=== PATIENT | female | born 1995 | race African-American/Black ===

== ENCOUNTER 2016-08-08 13:21 | Emergency (ER) | payer MEDICAID ==
[2016-08-08 13:29] VITALS: TEMP 98.1
[2016-08-08 14:42] LABS: % IMMATURE GRANULYOCYTES 0.3 % (0.0-1.1); ABSOLUTE IMMATURE GRANULOCYTES 0.02 10^3/uL (0.00-0.10); ADD DIFF? NO; ADD MORPH? NO; ADD SCAN? NO; ATYPICAL LYMPHOCYTE FLAG 10 (0-99); FRAGMENT RBC FLAG 0 (0-99); HEMATOCRIT 40.5 % (38.0-47.0); HEMOGLOBIN 13.2 g/dL (12.6-16.3); LEFT SHIFT FLG 0 (0-99); LIPEMIA HEMOLYSIS FLAG 80 (0-99); MEAN CELL HEMOGLOBIN CONCENTR. 32.6 g/dL (32.4-36.7); MEAN CELL VOLUME 82.8 fL (81.5-99.8); MEAN PLATELET VOLUME 9.8 fL (8.7-11.7); PLATELET CLUMPS FLAG 0 (0-99); PLATELET COUNT 214 10^3/uL (150-400); RED BLOOD CELL COUNT 4.89 10^6/uL (4.18-5.33); RED CELL DISTRIBUTION WIDTH 13.7 % (11.5-15.2)
[2016-08-08 15:00] LABS: ANION GAP 13 mEq/L (8-16); CALCIUM 9.6 mg/dL (8.5-10.4); CARBON DIOXIDE 21 mEq/l (22-31); CHLORIDE 108 mEq/L (97-110); CREATININE 0.8 mg/dL (0.6-1.0); GLOMERULAR FILTRATION RATE > 60; GLUCOSE 97 mg/dL (70-100); POTASSIUM 3.9 mEq/L (3.5-5.2); SODIUM 142 mEq/L (134-144)
--- NOTE | 2016-08-08 15:50 | EDPHY ---
H & P Time Seen by Provider: 08/08/16 14:03 HPI/ROS: CHIEF COMPLAINT: Vaginal bleeding HISTORY OF PRESENT ILLNESS: This is a 21-year-old female complaining of increased vaginal bleeding since Saturday, large clots today with abdominal cramping. Patient states she has been on the Depo without complications with scant bleeding. Reports this bleeding is very unusual for her. Patient states she is sexually active with 1 partner. Denies any chest pain or shortness of breath no other complaints REVIEW OF SYSTEMS: Constitutional: No fever, no chills. Eyes: No visual changes. ENT: No sore throat. Respiratory: No shortness of breath Cardiac: No chest pain Gastrointestinal: as above Genitourinary: Vaginal bleeding with clots Musculoskeletal: No back pain Skin: No rash Neurological: No headache or dizziness Smoking Status: Never smoked Physical Exam: General Appearance: Alert, no distress. Eyes: Pupils equal and round no pallor or injection. ENT, Mouth: Mucous membranes moist. Respiratory: There are no retractions, lungs are clear to auscultation. Cardiovascular: Regular rate and rhythm. Gastrointestinal: Abdomen is soft with suprapubic tenderness on palpate, no masses, : Pelvic exam: The vulva was normal no lesions. The vagina positive for blood in the vault, with some clots noted. The cervix was closed active bleeding no purulent drainage. The uterus was normal size and nontender. The adnexa had no masses and no tenderness. The exam was performed with a valance cutter. Skin: Warm and dry, no rashes. Musculoskeletal: Neck is supple nontender. Extremities are symmetrical, full range of motion. Psychiatric: Patient is oriented X 3, there is no agitation. Constitutional: Initial Vital Signs Temperature (C) 36.7 C 08/08/16 13:26 Heart Rate 94 08/08/16 13:26 Respiratory Rate 17 08/08/16 13:26 Blood Pressure 144/93 H 08/08/16 13:26 O2 Sat (%) 97 08/08/16 13:26 O2 Delivery Mode Room Air Allergies/Adverse Reactions: No Known Allergies Allergy (Unverified 08/08/16 13:25) Home Medications: Medication Instructions Recorded Depo-Provera 08/08/16 Medical Decision Making - Diagnostics Imaging: Imaging Impressions Pelvic/Renal Ultrasound 08/08/16 15:21 Impression: 1. Thickened endometrial stripe with indistinct margins with the myometrium. This can be seen with adenomyosis. Also consider endometrial hyperplasia. 2. Normal-appearing right ovary. 3. Suboptimal visualization of the left ovary which appears grossly normal. Findings discussed with Vianney Moraes NP at 16:34 hour, 08/08/2016. ED Course/Re-evaluation: Discussed plan of care: CBC, HCG, pelvic exam, and pelvic ultrasound ordered 1530: Patient tolerated pelvic exam 1645: Discussed ultrasound results with patient. discharge home---> stable, discussed discharge instructions the patient Differential Diagnosis: differential diagnosis considered but not limited to ovarian cyst, ovarian torsion, and uterine mass - Data Points Laboratory Results: Laboratory Results 08/08/16 14:35 08/08/16 14:35 08/08/16 08/08/16 08/08/16 15:15 14:35 14:35 WBC RBC Hgb Hct MCV MCH MCHC RDW Plt Count MPV Neut % (Auto) Lymph % (Auto) [place] % (Auto) Eos % (Auto) Baso % (Auto) Nucleat RBC Rel Count Absolute Neuts (auto) Absolute Lymphs (auto) Absolute Monos (auto) Absolute Eos (auto) Absolute Basos (auto) Absolute Nucleated RBC Immature Gran % Immature Gran # Sodium 142 mEq/L mEq/L (134-144) Potassium 3.9 mEq/L mEq/L (3.5-5.2) Chloride 108 mEq/L mEq/L (97-110) Carbon Dioxide 21 mEq/l L mEq/l (22-31) Anion Gap 13 mEq/L mEq/L (8-16) BUN 8 mg/dL mg/dL (7-23) Creatinine 0.8 mg/dL mg/dL (0.6-1.0) Estimated GFR > 60 Glucose 97 mg/dL mg/dL (70-100) Calcium 9.6 mg/dL mg/dL (8.5-10.4) Beta HCG, Qual NEGATIVE Ana species DNA Pending Gardnerella DNA Probe Pending Trichomonas DNA Probe Pending 08/08/16 14:35 WBC 7.18 10^3/uL 10^3/uL (3.80-9.50) RBC 4.89 10^6/uL 10^6/uL (4.18-5.33) Hgb 13.2 g/dL g/dL (12.6-16.3) Hct 40.5 % % (38.0-47.0) MCV 82.8 fL fL (81.5-99.8) MCH 27.0 pg L pg (27.9-34.1) MCHC 32.6 g/dL g/dL (32.4-36.7) RDW 13.7 % % (11.5-15.2) Plt Count 214 10^3/uL 10^3/uL (150-400) MPV 9.8 fL fL (8.7-11.7) Neut % (Auto) 66.5 % % (39.3-74.2) Lymph % (Auto) 26.7 % % (15.0-45.0) [place] % (Auto) 5.4 % % (4.5-13.0) Eos % (Auto) 0.8 % % (0.6-7.6) Baso % (Auto) 0.3 % % (0.3-1.7) Nucleat RBC Rel Count 0.0 % % (0.0-0.2) Absolute Neuts (auto) 4.77 10^3/uL 10^3/uL (1.70-6.50) Absolute Lymphs (auto) 1.92 10^3/uL 10^3/uL (1.00-3.00) Absolute Monos (auto) 0.39 10^3/uL 10^3/uL (0.30-0.80) Absolute Eos (auto) 0.06 10^3/uL 10^3/uL (0.03-0.40) Absolute Basos (auto) 0.02 10^3/uL 10^3/uL (0.02-0.10) Absolute Nucleated RBC 0.00 10^3/uL 10^3/uL (0-0.01) Immature Gran % 0.3 % % (0.0-1.1) Immature Gran # 0.02 10^3/uL 10^3/uL (0.00-0.10) Sodium Potassium Chloride Carbon Dioxide Anion Gap BUN Creatinine Estimated GFR Glucose Calcium Beta HCG, Qual Ana species DNA Gardnerella DNA Probe Trichomonas DNA Probe Departure - Departure Disposition: Home, Routine, Self-Care Clinical Impression: Menorrhagia with irregular cycle Condition: Good Instructions: Menorrhagia (ED) Additional Instructions: 1. The follow-up with your primary care physician, no mass or ovarian cyst were seen on ultrasound ultrasound Impression: Thickened endometrial stripe with indistinct margins with the myometrium. This can be seen with adenomyosis. Also consider endometrial hyperplasia. Normal-appearing right ovary. Suboptimal visualization of the left ovary which appears grossly normal. 2. you can take Tylenol or ibuprofen for abdominal cramping 3. if any culture results are positive the hospital call you Referrals: NONE *PRIMARY CARE P,. [Primary Care Provider] - As per Instructions [facility],. [Clinic] - As per Instructions
[2016-08-08 16:55] VITALS: BP 140/87; PULSE 75; RESP 18; O2SAT 96
== END 2016-08-08 17:06 | disposition home or self-care (01) ==
DX: N92.0 Excessive and frequent menstruation with regular cycle (principal)

== ENCOUNTER 2016-08-13 20:12 | Emergency (ER) | payer MEDICAID ==
[2016-08-13 20:30] VITALS: RESP 16; TEMP 98.8; O2SAT 99
--- NOTE | 2016-08-13 20:42 | EDPHY ---
H & P Stated Complaint: seen weds for same, heavy vag bleeding, pt says has used 60 pads since weds - Medical/Surgical History Hx Asthma: No Hx Chronic Respiratory Disease: No Hx Diabetes: No Hx Cardiac Disease: No Hx Renal Disease: No Hx Cirrhosis: No Hx Alcoholism: No Hx HIV/AIDS: No Hx Splenectomy or Spleen Trauma: No Other PMH: back surgery - Social History Smoking Status: Never smoked Time Seen by Provider: 08/13/16 20:40 HPI/ROS: CHIEF COMPLAINT: Heavy vaginal bleeding HISTORY OF PRESENT ILLNESS: 21-year-old female seen emergency department 5 days ago for same complaint notes that she has increased her vaginal had usage, soaking a pad every 20 minutes, complaining of mild dizziness continued suprapubic discomfort. Otherwise no acute symptoms. Last Depo-Provera shot was 3 months ago. No prior history of similar. No urinary complaints. No back pain. No chest pain. PRIMARY CARE PROVIDER: [facility] REVIEW OF SYSTEMS: A ten point review of systems was performed and is negative with the exception of the items mentioned in the HPI PAST MEDICAL & SURGICAL HISTORY: No pertinent medical or surgical history SOCIAL HISTORY: [employer] Student PHYSICAL EXAM (Prior to examination, patient consented to physical exam, hands were washed and my usual and customary physical exam procedures followed) 1) GENERAL: Well-developed, well-nourished, alert and oriented. Appears to be in no acute distress. 2) HEAD: Normocephalic, atraumatic 3) HEENT: Pupils equal, round, reactive to light bilaterally. Sclera anicteric. 4) NECK: Full range of motion, no meningeal signs. 5) LUNGS: Clear auscultation bilaterally 6) HEART: Regular rate and rhythm, no murmur, no heave, no gallop. 7) ABDOMEN: No guarding, no rebound, no focal tenderness, negative McBurney's, negative Fink's, negative Rovsing's, negative peritoneal sign, 8) MUSCULOSKELETAL: No peripheral edema or discoloration. 9) BACK: No CVA tendernes. 10) SKIN: No rash, no petechiae. 11) PELVIC (with female nurse Vianney at bedside): Normal female external genitalia, no lesions visualized. Speculum examination reveals no active vaginal bleeding. Scant amount of old blood in the vaginal vault, DIFFERENTIAL DIAGNOSIS: In no particular order including but not limited to dysfunctional uterine bleeding, heavy menstrual bleeding, ectopic (Efren Medina) Constitutional: Initial Vital Signs Temperature (C) 37.1 C 08/13/16 20:28 Heart Rate 89 08/13/16 20:28 Respiratory Rate 16 08/13/16 20:28 Blood Pressure 142/87 H 08/13/16 20:28 O2 Sat (%) 99 08/13/16 20:28 O2 Delivery Mode Room Air Allergies/Adverse Reactions: No Known Allergies Allergy (Verified 08/13/16 20:30) Home Medications: Medication Instructions Recorded Depo-Provera 08/08/16 Medical Decision Making ED Course/Re-evaluation: Old medical records reviewed including laboratory results., Phone consultation with on-call OBGYN Teresa Guerrero who recommended patient not receive Depo-Provera anymore, recommend starting oral iron supplementation and starting the patient on and follow up in the office for further evaluation. This was a hand written prescription as it is not available in the electronic medical record. (Efren Medina) I did not see this patient while she was in the emergency department. However her care was discussed with the PA while the patient was in the department. I agree with treatment plan and management (Sean Santacruz) - Data Points Laboratory Results: Laboratory Results 08/13/16 20:40 08/13/16 20:40 Departure - Departure Disposition: Home, Routine, Self-Care Clinical Impression: Heavy menstrual bleeding Condition: Good Instructions: Dysfunctional Uterine Bleeding (ED) Additional Instructions: Return to the ER if develop dizziness, chest pain or any other symptoms that concern you. Referrals: Nia Goldstein DO [Doctor of Osteopathy] - 5-7 days, call for appt.
[2016-08-13 20:55] LABS: % IMMATURE GRANULYOCYTES 0.3 % (0.0-1.1); ABSOLUTE IMMATURE GRANULOCYTES 0.02 10^3/uL (0.00-0.10); ADD DIFF? NO; ADD MORPH? NO; ADD SCAN? NO; ATYPICAL LYMPHOCYTE FLAG 0 (0-99); FRAGMENT RBC FLAG 0 (0-99); HEMATOCRIT 34.2 % (38.0-47.0); HEMOGLOBIN 11.1 g/dL (12.6-16.3); LEFT SHIFT FLG 0 (0-99); LIPEMIA HEMOLYSIS FLAG 80 (0-99); MEAN CELL HEMOGLOBIN 27.1 pg (27.9-34.1); MEAN CELL HEMOGLOBIN CONCENTR. 32.5 g/dL (32.4-36.7); MEAN CELL VOLUME 83.4 fL (81.5-99.8); MEAN PLATELET VOLUME 9.7 fL (8.7-11.7); PLATELET CLUMPS FLAG 0 (0-99); PLATELET COUNT 220 10^3/uL (150-400); RED CELL DISTRIBUTION WIDTH 13.8 % (11.5-15.2)
[2016-08-13 21:04] LABS: ANION GAP 9 mEq/L (8-16); CALCIUM 9.1 mg/dL (8.5-10.4); CARBON DIOXIDE 22 mEq/l (22-31); CHLORIDE 109 mEq/L (97-110); CREATININE 0.7 mg/dL (0.6-1.0); GLOMERULAR FILTRATION RATE > 60; GLUCOSE 96 mg/dL (70-100); POTASSIUM 3.7 mEq/L (3.5-5.2); SODIUM 140 mEq/L (134-144)
[2016-08-13 22:45] VITALS: BP 130/91; PULSE 88
== END 2016-08-13 22:44 | disposition home or self-care (01) ==
DX: N92.0 Excessive and frequent menstruation with regular cycle (principal)